=== PATIENT | female | born 1960 | race Caucasian/White ===

== ENCOUNTER 2018-12-10 00:20 | Emergency (ER) | payer SELFPAY ==
[~2018-12-10] VITALS: Ht 144.8 cm; Wt 105.7 kg
[2018-12-10] MEDS ORDERED: IBUPROFEN 800 MG TABLET ONE (00:59)
[2018-12-10] MEDS ORDERED: IBUPROFEN 800 MG TABLET PO ONE (01:00)
[2018-12-10 01:06] VITALS: BP 160/95
== END 2018-12-10 01:09 | disposition home or self-care (01) ==
LOC: ED 01:03
DX: K08.89 Other specified disorders of teeth and supporting structures (principal)
CPT/HCPCS: 99283

== ENCOUNTER → 2019-02-19 | Outpatient (CLI) | payer OTHER ==
[2019-02-19 09:12] LABS: BASOPHILS # (AUTO) 0.02 x10^3/uL (0-0.1); BASOPHILS % (AUTO) 1 % (0-1); EOSINOPHILS # (AUTO) 0.07 x10^3/uL (0-0.4); EOSINOPHILS % (AUTO) 2 % (1-7); LYMPHOCYTES # (AUTO) 1.41 x10^3/uL (1-3.4); LYMPHOCYTES % (AUTO) 43 % (22-44); MD NO; MEAN CORPUSCULAR HEMOGLOBIN 28.4 pg (27.0-34.8); MEAN CORPUSCULAR HGB CONC 32.9 g/dL (32.4-35.8); MEAN CORPUSCULAR VOLUME 86.3 fL (80-100); MONOCYTES # (AUTO) 0.32 x10^3/uL (0.2-0.8); MONOCYTES % (AUTO) 10 % (2-9); NEUTROPHILS # (AUTO) 1.44 x10^3/uL (1.8-6.8); NEUTROPHILS % (AUTO) 44 % (42-75); PLATELET COUNT 257 x10^3/uL (130-400); RED BLOOD COUNT 4.98 x10^6/uL (3.82-5.3); RED CELL DISTRIBUTION WIDTH 15.6 % (9.6-15.2)
[2019-02-19 10:06] LABS: ANION GAP 8 mmol/L (5-15); CALCIUM 9.5 mg/dL (8.5-10.1); CHLORIDE 106 mmol/L (98-107)
[2019-02-19 10:28] LABS: ALANINE AMINOTRANSFERASE 196 U/L (12-78); ALKALINE PHOSPHATASE 87 U/L (45-117); BILIRUBIN,TOTAL 0.8 mg/dL (0.2-1.0); CHOLESTEROL, TOTAL 166 mg/dL (140-239); CREATININE 0.84 mg/dL (0.55-1.02); HDL CHOL % 25 % (28-40); HDL CHOLESTEROL (DIRECT) 41 mg/dL (40-60); LDL CHOLESTEROL,CALCULATED 100 mg/dL (54-169); LDL/HDL RATIO 2.4 (0.5-3.0); TOTAL PROTEIN 7.5 g/dL (6.4-8.2); TRIGLYCERIDES 127 mg/dL (50-200); VLDL CHOLESTEROL 25 mg/dL (0-25)
[2019-02-19 10:33] LABS: HEMOGLOBIN A1C 7.1 % (4.2-6.3)
== END | disposition home or self-care (01) ==
LOC: LAB 08:16
PROVIDERS: ATTEND Internal Medicine
DX: E11.42 Type 2 diabetes mellitus with diabetic polyneuropathy (principal); E78.5 Hyperlipidemia, unspecified; I10 Essential (primary) hypertension
CPT/HCPCS: 36415; 80053; 80061; 83036; 85025

== ENCOUNTER 2019-03-10 22:56 | Emergency (ER) | payer OTHER ==
[~2019-03-10] VITALS: Ht 144.8 cm; Wt 104.6 kg
[2019-03-10] MEDS ORDERED: METF500T17 PO (23:15)
[2019-03-10] MEDS ORDERED: LISINOPRIL/HCTZ (23:17)
[2019-03-10] MEDS ORDERED: LOVA40TA2 PO (23:17)
[2019-03-10] MEDS ORDERED: ONDANSETRON 2MG/ML, 2ML IVPush ONE (23:30)
[2019-03-10 23:31] LABS: BASOPHILS # (AUTO) 0.02 x10^3/uL (0-0.1); BASOPHILS % (AUTO) 0 % (0-1); EOSINOPHILS # (AUTO) 0.08 x10^3/uL (0-0.4); EOSINOPHILS % (AUTO) 2 % (1-7); LYMPHOCYTES # (AUTO) 2.09 x10^3/uL (1-3.4); LYMPHOCYTES % (AUTO) 38 % (22-44); MD NO; MEAN CORPUSCULAR HEMOGLOBIN 28.8 pg (27.0-34.8); MEAN CORPUSCULAR HGB CONC 33.4 g/dL (32.4-35.8); MEAN CORPUSCULAR VOLUME 86.3 fL (80-100); MEAN PLATELET VOLUME 8.1 fL (7.4-10.4); MONOCYTES # (AUTO) 0.44 x10^3/uL (0.2-0.8); MONOCYTES % (AUTO) 8 % (2-9); NEUTROPHILS # (AUTO) 2.82 x10^3/uL (1.8-6.8); NEUTROPHILS % (AUTO) 52 % (42-75); PLATELET COUNT 278 x10^3/uL (130-400); RED BLOOD COUNT 5.13 x10^6/uL (3.82-5.3)
[2019-03-10] MEDS ORDERED: ONDANSETRON 2MG/ML, 2ML ONE (23:36)
[2019-03-10 23:43] LABS: ALANINE AMINOTRANSFERASE 251 U/L (12-78); ALBUMIN 3.9 g/dL (3.4-5.0); ANION GAP 13 mmol/L (5-15); CALCIUM 9.4 mg/dL (8.5-10.1); CHLORIDE 106 mmol/L (98-107); CREATININE 0.94 mg/dL (0.55-1.02)
[2019-03-10 23:47] LABS: ALKALINE PHOSPHATASE 92 U/L (45-117); BILIRUBIN,TOTAL 0.6 mg/dL (0.2-1.0); TOTAL PROTEIN 7.4 g/dL (6.4-8.2); TROPONIN I < 0.015 ng/mL (0.000-0.045)
--- NOTE | 2019-03-10 23:58 | NUR ---
PT TO CT VIA STRETCHER.
[2019-03-11] MEDS ORDERED: OMNIPAQUE 350 MG/ML, 100ML BOTTLE ONE (00:08)
--- NOTE | 2019-03-11 00:22 | NUR ---
PT UP TO BATHROOM AT THIS TIME.
--- NOTE | 2019-03-11 00:48 | NUR ---
URINE SPECIMEN WALKED TO LAB, NO STOOL.
--- NOTE | 2019-03-11 00:50 | NUR ---
PT GIVEN ICE CHIPS PER .
--- NOTE | 2019-03-11 01:01 | NUR ---
SBAR report received from [facility].
[2019-03-11 01:17] LABS: MICROSCOPIC NOT IND
[2019-03-11 01:20] LABS: CULTURE INDICATED? NO
--- NOTE | 2019-03-11 01:24 | NUR ---
Dr. Hackett at bedside to discuss ED findings and d/c information.
--- NOTE | 2019-03-11 02:00 | NUR ---
IV d/c'd with tip intact. Pt changing into gown and aware of plan for discharge.
[2019-03-11 02:01] VITALS: BP 104/60
--- NOTE | 2019-03-11 02:08 | NUR ---
Patient/Caregiver given discharge instructions and they have confirmed that they understand the instructions. Patient ambulatory with steady gait.
== END 2019-03-11 02:09 | disposition home or self-care (01) ==
LOC: ED 23:06
DX: R10.84 Generalized abdominal pain (principal); E78.00 Pure hypercholesterolemia, unspecified; I10 Essential (primary) hypertension; E11.9 Type 2 diabetes mellitus without complications
CPT/HCPCS: 36415; 74177; 80053; 81003; 83690; 84484; 85025; 96374; 99284; J2405; Q9967